=== PATIENT | female | born 1995 | race African-American/Black ===

== ENCOUNTER 2020-05-30 17:33 | Emergency (ER) | payer OTHER ==
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
[2020-05-30] MEDS ORDERED: SODIUM CHLORIDE 1,000 ML IV STA (17:41)
[2020-05-30 17:48] VITALS: BMI 29.7
[2020-05-30 18:32] LABS: COCAINE, UR NEGATIVE ng/ml (CUTOFF=300); METHADONE, UR NEGATIVE ng/ml (CUTOFF=300); PHENCYCLIDINE,URINE NEGATIVE ng/ml (CUTOFF=25); URINE AMPHETAMINES NEGATIVE ng/ml (CUTOFF=500); URINE BENZODIAZEPINES NEGATIVE ng/ml (CUTOFF=200)
[2020-05-30 18:34] LABS: URINE BARBITURATES NEGATIVE ng/ml (CUTOFF=200)
[2020-05-30 18:36] LABS: OPIATES, URI POSITIVE ng/ml (CUTOFF=300)
[2020-05-30 18:37] LABS: BASO % 0.4 % (0-2.0); EOS % 4.2 % (0-4.5); HEMOGLOBIN 13.4 GM/dL (10.7-15.3); LYMPH % 28.6 % (8-40); MCH 32.4 pg (25.7-33.7); MCHC 33.6 g/dl (32.0-36.0); MEAN CELL VOLUME 96.5 fl (80-96); MEAN PLT VOLUME 9.9 fl (7.5-11.1); MONO % 7.1 % (3.8-10.2); NEUT % 59.7 % (42.8-82.8); PLATELET COUNT 202 K/MM3 (134-434); RBC 4.14 M/mm3 (3.60-5.2); RDW 13.8 % (11.6-15.6); WHITE BLOOD COUNT 7.1 K/mm3 (4.0-10.0)
[2020-05-30 19:05] LABS: ALBUMIN 4.1 g/dl (3.4-5.0); ALK PHOS 76 U/L (45-117); ANION GAP 6 MMOL/L (8-16); BILIRUBIN,TOTAL 0.2 mg/dL (0.2-1); BLOOD UREA NITROGEN 7.1 mg/dL (7-18); CALCIUM 9.2 mg/dL (8.5-10.1); CHLORIDE 106 mmol/L (98-107); CO2 27 mmol/L (21-32); CREATININE 0.9 mg/dL (0.55-1.3); EPI CELLS >36 /uL (0-25.1); GLUCOSE,RANDOM 93 mg/dL (74-106); HYALINE CASTS 1 /uL (0-3.1); POTASSIUM 4.2 mmol/L (3.5-5.1); SGOT/AST 14 U/L (15-37); SGPT/ALT 17 U/L (13-61); SODIUM 138 mmol/L (136-145); TOT PROT 8.2 g/dl (6.4-8.2); URINE APPEARANCE CLEAR; URINE BACTERIA 2145 /uL (0-1359); URINE BILIRUBIN NEGATIVE (NEGATIVE); URINE COLOR YELLOW; URINE GLUCOSE (UA) NEGATIVE (NEGATIVE); URINE KETONE NEGATIVE (NEGATIVE); URINE LEUK ESTERASE 1+ (NEGATIVE); URINE NITRITE NEGATIVE (NEGATIVE); URINE PROTEIN NEGATIVE (NEGATIVE); URINE RBC 3 /uL (0-23.9); URINE UROBILINOGEN 0.2 mg/dL (0.2-1.0); URINE WBC 39 /uL (0-25.8)
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
[2020-05-30 19:51] VITALS: BP 106/60; PULSE 63; TEMP 97.6
--- NOTE | 2020-05-30 20:13 | PDOC ---
Attending Attestation - Resident Resident Name: Lulu Paniagua - ED Attending Attestation I have performed the following: I have examined & evaluated the patient, The case was reviewed & discussed with the resident, I agree w/resident's findings & plan, Exceptions are as noted - HPI HPI: 05/31/20 02:04 See resident HPI - Physicial Exam PE: 05/31/20 02:04 Agree with documented exam - Medical Decision Making 05/31/20 02:04 Lightheadedness in context of EtOH at [facility], no cp, palpitations, sob, diaphoresis f/u labs, ekg, tox, thyroid dispo per clinical course Discharge - Discharge Information Problems reviewed: Yes Clinical Impression/Diagnosis: Dizziness Condition: Stable Disposition: HOME - Follow up/Referral Referrals: Chan Munoz MD [Staff Physician] - - Patient Discharge Instructions Patient Printed Discharge Instructions: DI for Dizziness-Nonvertigo Additional Instructions: You were seen in the ED today for lightheadedness. You were evaluated with a physical exam and labs. We tested your thyroid which came back within normal limits. We recommend follow-up with an molecular genetic pathologist and have given you a referral. Please follow-up with endocrinology within the next week. Return to the ED if you have any new or worsening concerns, or loss of consciousness. - Post Discharge Activity
--- NOTE | 2020-05-31 10:23 | EKG ---
Test Reason : Blood Pressure : / mmHG Vent. Rate : 062 BPM Atrial Rate : 062 BPM P-R Int : 148 ms QRS Dur : 082 ms QT Int : 424 ms P-R-T Axes : 032 020 004 degrees QTc Int : 430 ms NORMAL SINUS RHYTHM NO PREVIOUS ECGS AVAILABLE Confirmed by CHECO ASIF MD ([id number]) on 05/31/2020 10:23:03 AM Referred By: Confirmed By:CHECO ASIF MD
== END 2020-05-30 20:49 | disposition home or self-care (01) ==
LOC: JER 17:33
PROC: 3E0337Z Introduction of Electrolytic and Water Balance Substance into Peripheral Vein, Percutaneous Approach (ICD-10-PCS; principal; 2020-05-30)
DX: R42 Dizziness and giddiness (principal)
CPT/HCPCS: 36415; 80053; 80307; 81003; 84439; 84443; 85025; 93005; 93010; 99284-25

== ENCOUNTER 2020-06-15 23:18 | Emergency (ER) | payer OTHER ==
[2020-06-15 23:24] VITALS: BP 117/61; PULSE 76; BMI 29.8
[2020-06-16] MEDS ORDERED: CEPHALEXIN MONOHYDRATE 500 MG CAPSULE (UD) PO ONE (00:26)
[2020-06-16] MEDS ORDERED: CEPHALEXIN MONOHYDRATE 500 MG CAPSULE (UD) ONE (00:42)
--- NOTE | 2020-06-16 01:40 | PDOC ---
Documentation entered by Clari Velasquez SCRIBE, acting as scribe for Diana Tierney MD. Diana Tierney MD: This documentation has been prepared by the rebaibeRon Lincy, SCRIBE, under my direction and personally reviewed by me in its entirety. I confirm that the documentation accurately reflects all work, treatment, procedures, and medical decision making performed by me. Attending Attestation - Resident Resident Name: Yeison Acosta - ED Attending Attestation I have performed the following: I have examined & evaluated the patient, The case was reviewed & discussed with the resident, I agree w/resident's findings & plan - HPI HPI: 06/16/20 00:38 The patient is a 25 year old female with past medical history significant for Thyroid problem (denies following up) who presents to the emergency department via EMS for dizziness. The patient reports she had an episode of dizziness and weakness about an hour prior to arrival, associated with nausea. The patient reports taking Tylenol for the symptoms, without relief. The patient reports she was seen at the ED for a fever and throat swelling, the patient had a negative strep test and COVID test came back negative. The patient reports she lives [place] and denies any known sick contact. Denies ear pain, fatigue, vomiting, diarrhea, decreased appetite, urinary symptoms. LMP: last month. Recently got the depo-provera shot. Allergies: NKA PCP: Dr. Ilya Perez. - Physicial Exam PE: 06/16/20 00:40 GENERAL: Awake, alert, and fully oriented, in no acute distress HEAD: No signs of trauma EYES: PERRLA, EOMI, sclera anicteric, conjunctiva clear ENT: Throat is red throughout +smoker, no enlarged tonsils, Auricles normal inspection, hearing grossly normal, nares patent, Moist mucosa NECK: Normal ROM, supple, no lymphadenopathy, JVD, or masses LUNGS: Breath sounds equal, clear to auscultation bilaterally. No wheezes, and no crackles HEART: Regular rate and rhythm, normal S1 and S2, no murmurs, rubs or gallops ABDOMEN: Soft, minimal suprapubic tenderness. No flank pain. EXTREMITIES: Normal range of motion, moving all extremities. NEUROLOGICAL: Cranial nerves II through XII grossly intact. Normal speech, normal gait SKIN: Warm, Dry, normal turgor, no rashes or lesions noted. - Medical Decision Making 06/16/20 01:39 Pt has a normal CXR Pt has suprapubic pain She has normal labs done 4 days ago. Discharge - Discharge Information Problems reviewed: Yes Clinical Impression/Diagnosis: UTI (urinary tract infection), Dizziness Condition: Stable Disposition: HOME - Admission No - Additional Discharge Information Prescriptions: Cephalexin [Keflex] 500 mg PO BID #14 capsule Cephalexin [Keflex] 500 mg PO BID #14 capsule - Follow up/Referral Referrals: Teddy Perez MD [Primary Care Provider] - - Patient Discharge Instructions Patient Printed Discharge Instructions: Urinary Tract Infection, Viral Pharyngitis, Thyroid Autoantibody Tests, Thyroid Stimulating Hormone - Post Discharge Activity
[2020-06-16] MEDS ORDERED: busPIRone HCL 10 MG TABLET (FP) PO ONE (02:04)
[2020-06-16] MEDS ORDERED: busPIRone HCL 5 MG TABLET ONE (02:07)
[2020-06-16 02:14] VITALS: TEMP 98.5
--- NOTE | 2020-06-16 03:11 | PDOC ---
History of Present Illness - General Chief Complaint: Lightheaded Stated Complaint: DIZZINESS Time Seen by Provider: 06/15/20 23:41 - History of Present Illness Initial Comments: 06/16/20 03:06 25yo F recent h/o UTI and a thyroid disorder diagnosis p/w dizziness. She states she felt like this 2 weeks ago that prompted her to come to the ED. She claims she had a thyroid problem diagnosed but review of last visit in mid 05/2020 s howed normal TSH. Denies a h/o GI bleed, arrythmia, anemia, or regular medication. ROS CONSTITUTIONAL: claims to have had a fever in the last few days. claims to oscillate between feeling very hot and very cold. Absent: chills, diaphoresis, generalized weakness, malaise, loss of appetite HEENT: throat pain, throat swelling, difficulty swallowing, Absent: rhinorrhea, nasal congestion, mouth swelling, ear pain, eye pain, visual Changes CARDIOVASCULAR: +, palpitations, irregular heart rate, lightheadedness, Absent: chest pain, syncopeperipheral edema RESPIRATORY: Absent: cough, shortness of breath, dyspnea with exertion GASTROINTESTINAL: Absent: abdominal pain, abdominal distension, nausea, vomiting, diarrhea GENITOURINARY: Absent: dysuria, frequency, urgency, hesitancy, hematuria, flank pain, genital pain MUSCULOSKELETAL: Absent: myalgia SKIN: Absent: rash, itching, pallor ENDOCRINE: Absent: unexplained weight gain, unexplained weight loss, heat intolerance, cold intolerance NEUROLOGIC: Absent: headache, focal weakness or paresthesias, dizziness, unsteady gait, seizure, mental status changes, bladder or bowel incontinence PSYCHIATRIC: Absent: anxiety, depression, suicidal or homicidal ideation, hallucinations. PE GENERAL: Well developed, well nourished. Awake and alert. No acute distress. HEENT: Normocephalic, atraumatic. PERRLA, EOMI. No conjunctival pallor. Sclera are non- icteric. Moist mucous membranes. Oropharynx is clear. NECK: Supple. Full ROM. No JVD. No thyromegaly. CARDIOVASCULAR: Regular rate and rhythm. No murmurs, rubs, or gallops. Distal pulses are 2+ and symmetric. PULMONARY: No evidence of respiratory distress. Lungs clear to auscultation bilaterally. No wheezing, rales or rhonchi. ABDOMINAL: Soft. Non-tender. Non-distended. No rebound or guarding. No organomegaly. Normoactive bowel sounds. Discussed case w/ ED attending who instructed to give keflex for UTI, do CXR, and send monospot. If normal, then send home. 06/16/20 03:28 06/16/20 03:28 06/16/20 03:29 Past History - Medical History Allergies/Adverse Reactions: Allergies Allergy/AdvReac Type Severity Reaction Status Date / Time No Known Allergies Allergy Verified 06/15/20 23:23 Home Medications: Ambulatory Orders Cephalexin [Keflex] 500 mg PO BID #14 capsule 06/16/20 Cephalexin [Keflex] 500 mg PO BID #14 capsule 06/16/20 COPD: No - Psycho-Social/Smoking History Smoking History: Never smoked Have you smoked in the past 12 months: No Information on smoking cessation initiated: No - Substance Abuse Hx (Audit-C & DAST Scrn) How often the patient has a drink containing alcohol: Never Score: In Men: 4 or > Positive; In Women: 3 or > Positive: 0 Screen Result (Pos requires Nsg. Audit-10AR): Negative In the last yr the pt used illegal drug/Rx for NonMed reason: No Score: Yes response is considered Positive: 0 Screen Result (Positive result requires Nsg. DAST-10): Negative *Physical Exam - Vital Signs Last Vital Signs Temp Pulse Resp BP Pulse Ox 98.5 F 76 20 117/61 100 06/16/20 01:30 06/15/20 23:23 06/15/20 23:23 06/15/20 23:23 06/15/20 23:23 ED Treatment Course - Medications Given in the ED: ED Medications Discontinued Medications Generic Name Dose Route Start Last Admin Trade Name Freq PRN Reason Stop Dose Admin Buspirone HCl 10 mg 06/16/20 02:04 06/16/20 02:13 Buspar - PO 06/16/20 02:05 10 mg ONCE ONE Administration Cephalexin HCl 500 mg 06/16/20 00:26 06/16/20 00:59 Keflex - PO 06/16/20 00:27 500 mg ONCE ONE Administration Discharge - Discharge Information Problems reviewed: Yes Clinical Impression/Diagnosis: Dizziness UTI (urinary tract infection) Qualifiers: Urinary tract infection type: site unspecified Condition: Stable Disposition: HOME - Admission No - Additional Discharge Information Prescriptions: Cephalexin [Keflex] 500 mg PO BID #14 capsule Cephalexin [Keflex] 500 mg PO BID #14 capsule - Follow up/Referral Referrals: Teddy Perez MD [Primary Care Provider] - - Patient Discharge Instructions Patient Printed Discharge Instructions: Thyroid Autoantibody Tests, Viral Pharyngitis, Urinary Tract Infection, Thyroid Stimulating Hormone Additional Instructions: You came to the ED with dizziness. We decided to treat you for a UTI. We sent a prescription for antibiotics to your pharmacy. Please followup with your primary care doctor within ten days of discharge. Please come back to the ED with any severe or worsening symptoms. - Post Discharge Activity
== END 2020-06-16 02:15 | disposition home or self-care (01) ==
LOC: SUPCPDRO 23:18 → JER 23:18
DX: R42 Dizziness and giddiness (principal); N39.0 Urinary tract infection, site not specified
CPT/HCPCS: 36415; 71046-TC-FY; 86308; 87070; 87077; 87880; 99284-25

== ENCOUNTER 2020-12-02 02:36 | Emergency (ER) | payer OTHER ==
[2020-12-02 02:55] VITALS: BP 143/76; TEMP 98.6; BMI 28.2
[2020-12-02 03:36] VITALS: PULSE 90
[2020-12-02] MEDS ORDERED: IBUPROFEN 400 MG TABLET (FP) PO ONE ×2 (04:38→04:44)
== END 2020-12-02 04:51 | disposition home or self-care (01) ==
LOC: JER 02:36
DX: R07.0 Pain in throat (principal)
CPT/HCPCS: 87070; 87880; 99284-25

== ENCOUNTER 2024-03-26 00:28 | Emergency (ER) | payer OTHER ==
[2024-03-26 01:08] VITALS: BMI 30.7
[2024-03-26 02:16] VITALS: BP 116/66; PULSE 64; RESP 18; TEMP 98.7
[2024-03-26 02:33] LABS: BASO % 0.3 % (0-2.0); EOS % 1.4 % (0-4.5); HEMATOCRIT 36.3 % (32.4-45.2); HEMOGLOBIN 12.5 GM/dL (10.7-15.3); LYMPH % 25.5 % (8-40); MCH 33.3 pg (25.7-33.7); MCHC 34.4 g/dl (32.0-36.0); MEAN CELL VOLUME 96.9 fl (80-96); MEAN PLT VOLUME 9.8 fl (7.5-11.1); NEUT % 66.8 % (42.8-82.8); PLATELET COUNT 227 10^3/uL (134-434); RBC 3.75 M/mm3 (3.60-5.2); RDW 14.3 % (11.6-15.6); WHITE BLOOD COUNT 9.3 K/mm3 (4.0-10.0)
[2024-03-26 02:52] LABS: POTASSIUM 3.6 mmol/L (3.5-5.1)
[2024-03-26 02:54] LABS: CALCIUM 8.8 mg/dL (8.5-10.1)
[2024-03-26 02:55] LABS: ALBUMIN 3.5 g/dl (3.4-5.0)
[2024-03-26 02:58] LABS: CREATININE 0.9 mg/dL (0.55-1.3); INR 1.13 (0.83-1.09); PROTHROMBIN TIME (PATIENT) 12.7 SEC (9.7-13.0)
[2024-03-26 03:01] LABS: ACTIVATED PTT 36.1 SECONDS (25.2-36.5); BILIRUBIN,TOTAL 0.1 mg/dL (0.2-1); TOT PROT 7.5 g/dl (6.4-8.2)
[2024-03-26 03:36] LABS: EPI CELLS >36 /uL (0-25.1); HYALINE CASTS 7 /uL (0-3.1); PH,URINE 5.5 (5.0-8.0); URINE APPEARANCE CLOUDY; URINE BACTERIA 948 /uL (0-1359); URINE BILIRUBIN NEGATIVE (NEGATIVE); URINE COLOR YELLOW; URINE GLUCOSE (UA) NEGATIVE (NEGATIVE); URINE KETONE TRACE (NEGATIVE); URINE LEUK ESTERASE NEGATIVE (NEGATIVE); URINE NITRITE NEGATIVE (NEGATIVE); URINE PROTEIN 1+ (NEGATIVE); URINE RBC 13 /uL (0-23.9)
== END 2024-03-26 04:15 | disposition home or self-care (01) ==
LOC: JER 00:28
DX: O20.9 Hemorrhage in early pregnancy, unspecified (principal); Z3A.00 Weeks of gestation of pregnancy not specified
CPT/HCPCS: 36415; 76817-TC; 80053; 81003; 84702; 84703; 85025; 85610; 85730; 86850; 86900; 86901; 87086; 93005; 93010; 99285-25

== ENCOUNTER 2024-04-01 20:04 | Emergency (ER) | payer OTHER ==
[2024-04-01 20:09] VITALS: BP 144/90; PULSE 63; RESP 18; TEMP 98.1; BMI 32.4
[2024-04-01] MEDS ORDERED: FAMOTIDINE 20 MG TABLET ONE (21:04)
[2024-04-01] MEDS ORDERED: MAG HYDROX/AL HYDROX/SIMETH 30 ML UNIT-DOSE CUP ONE (21:04)
[2024-04-01] MEDS: FAMOTIDINE 20 MG TABLET PO ONE (21:20)
[2024-04-01] MEDS: MAG HYDROX/AL HYDROX/SIMETH 30 ML UNIT-DOSE CUP PO ONE (21:20)
== END 2024-04-01 22:14 | disposition home or self-care (01) ==
LOC: JER 20:04
DX: R60.0 Localized edema (principal); S93.402A Sprain of unspecified ligament of left ankle, initial encounter; M25.562 Pain in left knee; R42 Dizziness and giddiness; R07.89 Other chest pain; F17.210 Nicotine dependence, cigarettes, uncomplicated
CPT/HCPCS: 73562-TC-LT-FY; 73610-TC-LT-FY; 93005; 93010; 99284-25